=== PATIENT | male | born 1990 | race Caucasian/White ===

== ENCOUNTER 2017-09-27 09:27 | Emergency (ER) | payer OTHER ==
[~2017-09-27] VITALS: Ht 188 cm; Wt 90.9 kg
[~2017-09-27 09:27] MED LIST: DIPH50TA3 PO; PRED20TA PO
[2017-09-27] MEDS ORDERED: ZYRT10CA PO (09:36)
[2017-09-27] MEDS ORDERED: AUGM875T28 PO (10:31)
[2017-09-27 10:57] VITALS: BP 159/91
--- NOTE | 2017-09-27 18:29 | ECGEPIP ---
Stationary ECG Study [facility] - ED Test Date: 2017-09-27 Pat Name: MARSHALL PEREZ Department: Room: - Gender: M [employer]: corrine : 1990 Requested By: SHYANNE Murcia PA-C Order Number: [id number] Reading MD: Kalia Rainey Measurements Intervals [place] Rate: 89 P: 53 FL: 136 QRS: 19 QRSD: 90 T: 29 QT: 292 QTc: 355 Interpretive Statements SINUS RHYTHM NONSPECIFIC T-WAVE ABNORMALITY NO PRIORS FOR COMPARISON Electronically Signed On 09-27-2017 18:28:48 EST by Kalia Rainey
[2017-09-28] MEDS ORDERED: PRED20TA PO (01:55)
== END 2017-09-27 10:47 | disposition home or self-care (01) ==
LOC: M ED 09:27
DX: J32.9 Chronic sinusitis, unspecified (principal); M94.0 Chondrocostal junction syndrome [Tietze]; F17.200 Nicotine dependence, unspecified, uncomplicated; Z79.899 Other long term (current) drug therapy

== ENCOUNTER 2017-09-27 20:14 | Emergency (ER) | payer OTHER ==
[~2017-09-27] VITALS: Ht 188 cm; Wt 90.9 kg
[~2017-09-27 20:14] MED LIST changes: +AUGM875T28 PO; +ZYRT10CA PO
[2017-09-27] MEDS ORDERED: methylPREDNISolone INJ 125 MG/2 ML VIAL (J2930) IV ONE (20:45)
[2017-09-27] MEDS ORDERED: FAMOTIDINE INJ 20MG/2ML VIAL (S0028) IVP ONE (20:45)
[2017-09-27] MEDS ORDERED: diphenhydrAMINE INJ 50MG/ML VIAL (J1200) IV ONE (20:45)
[2017-09-27 21:05] LABS: BASO % 0.3 % (0.0-1.0); EOS # 0.2 10^3/uL (0.0-0.50); EOS % 1.5 % (0.0-3.0); IMMATURE GRANULOCYTE % 0.3 % (0-0); LYMPH # 1.9 10^3/uL (1.5-6.5); LYMPH % 15.7 % (24.0-44.0); MEAN CORPUSCULAR HEMOGLOBIN 31.3 pg (27.0-33.0); MEAN CORPUSCULAR HGB CONC 34.5 g/dl (32.0-36.5); MEAN CORPUSCULAR VOLUME 90.8 fl (80.0-96.0); MONO # 1.2 10^3/uL (0.0-0.8); MONO % 9.8 % (0.0-5.0); NEUTROPHILS # 8.6 10^3/uL (1.8-7.7); NEUTROPHILS % 72.4 % (36.0-66.0); PLATELET COUNT, AUTOMATED 239 10^3/uL (150-450); RED CELL DISTRIBUTION WIDTH 12.9 % (11.5-14.5); WHITE BLOOD COUNT 11.9 10^3/uL (4.0-10.0)
[2017-09-27 21:32] LABS: ANION GAP 7 MEQ/L (8-16); BLOOD UREA NITROGEN 11 MG/DL (7-18); CALCIUM LEVEL 9.3 MG/DL (8.5-10.1); CARBON DIOXIDE LEVEL 31 MEQ/L (21-32); CHLORIDE LEVEL 102 MEQ/L (98-107); CREATININE FOR GFR 1.18 MG/DL (0.70-1.30); GLOMERULAR FILTRATION RATE > 60.0 (>60); GLUCOSE, FASTING 101 MG/DL (70-105); POTASSIUM SERUM 3.5 MEQ/L (3.5-5.1); SODIUM LEVEL 140 MEQ/L (136-145)
[2017-09-27] MEDS ORDERED: ISOVUE-370 76% 100ML VIAL (Q9967) As Ordered ONE (21:46)
[2017-09-27] MEDS ORDERED: C1 ESTERASE INHIBITOR 500 UNIT ONE (22:00)
--- NOTE | 2017-09-27 22:10 | REPUSA ---
CT of the soft tissues of the neck clinical history: swelling. Technique: Multiple axial CT images were obtained from the base of the skull to the upper thorax afte r administration of nonionic intravenous contrast. Coronal and sagittal reconstructions were also obt ained. Findings: The visualized paranasal sinuses are clear. The pterygopalatine fossa, pterygoid plates and pterygoid muscles are unremarkable. The mucosa of the naso- and oropharynx appears unremarkable. The re is circumferential soft tissue swelling in the lower pharynx, causing mild narrowing of the airway . The visualized osseous structures are intact. The airway is patent. No focal mass is appreciated. T here is no evidence of lymphadenopathy. The thyroid gland appears unremarkable. The superficial soft tissues are unremarkable. The vascular structures demonstrate normal caliber and contour. Impression: Mild peritonitis. No evidence of abscess. The airway is patent.
[2017-09-27] MEDS ORDERED: DILUENT IV ONE (22:45)
[2017-09-27] MEDS ORDERED: C1 ESTERASE INHIBITOR IV ONE (22:45)
[2017-09-28] MEDS ORDERED: PRED20TA PO (01:55)
[2017-09-28 02:38] VITALS: BP 125/83
== END 2017-09-28 02:41 | disposition home or self-care (01) ==
LOC: M ED 20:14
DX: R22.0 Localized swelling, mass and lump, head (principal); T78.3XXA Angioneurotic edema, initial encounter; X58.XXXA Exposure to other specified factors, initial encounter; Y92.89 Other specified places as the place of occurrence of the external cause; Z79.2 Long term (current) use of antibiotics; Z79.899 Other long term (current) drug therapy
CPT/HCPCS: 70491; 80048; 85025; 86140; 86850; 86900; 86901; 87486; 87581; 87633; 87798; 87880; 96374; 96375; 99284; J0597; J1200; J2930; Q9967

== ENCOUNTER 2017-11-10 06:56 | Emergency (ER) | payer OTHER ==
[2017-11-10] MEDS: NS 1,000 ML IV (07:41)
[2017-11-10] MEDS: KETOROLAC 30 MG/ML VIAL (J1885) IV (07:41)
[2017-11-10] MEDS: diphenhydrAMINE 50 MG CAP PO (07:41)
[2017-11-10] MEDS: METOCLOPRAMIDE INJ 10MG/2ML VIAL (J2765) IV (07:41)
[2017-11-10 07:47] LABS: BASO % 0.3 % (0.0-1.0); EOS % 0.4 % (0.0-3.0); HEMOGLOBIN 14.2 g/dl (14.0-18.0); IMMATURE GRANULOCYTE % 0.3 % (0-0); LYMPH # 0.8 10^3/uL (1.5-6.5); LYMPH % 11.1 % (24.0-44.0); MEAN CORPUSCULAR HGB CONC 34.6 g/dl (32.0-36.5); MEAN CORPUSCULAR VOLUME 89.5 fl (80.0-96.0); MONO # 0.8 10^3/uL (0.0-0.8); MONO % 11.5 % (0.0-5.0); NEUTROPHILS # 5.3 10^3/uL (1.8-7.7); NEUTROPHILS % 76.4 % (36.0-66.0); PLATELET COUNT, AUTOMATED 162 10^3/uL (150-450); RED BLOOD COUNT 4.58 10^6/uL (4.30-6.10); RED CELL DISTRIBUTION WIDTH 12.1 % (11.5-14.5); WHITE BLOOD COUNT 6.9 10^3/uL (4.0-10.0)
[2017-11-10 07:49] LABS: APPEARANCE, URINE CLEAR (CLEAR); BACTERIA, URINE AUTO NEGATIVE (NEGATIVE); BILIRUBIN, URINE AUTO NEGATIVE (NEGATIVE); BLOOD, URINE BLOOD NEGATIVE (NEGATIVE); COLOR, URINE YELLOW (YELLOW); GLUCOSE, URINE (UA) AUTO NEGATIVE (NEGATIVE); KETONE, URINE AUTO NEGATIVE (NEGATIVE); LEUKOCYTE ESTERASE, URINE AUTO NEGATIVE (NEGATIVE); MUCUS, URINE SMALL (NEGATIVE); NITRITE, URINE AUTO NEGATIVE (NEGATIVE); PROTEIN, URINE AUTO NEGATIVE (NEGATIVE); RBC, URINE AUTO 2 /HPF (0-3); SPECIFIC GRAVITY URINE AUTO 1.019 (1.002-1.035); SQUAMOUS EPITHELIAL CELL UR AU 0 /HPF (0-6); UROBILINOGEN, URINE AUTO 0.2 mg/dL (0.0-2.0); WBC, URINE AUTO 2 /HPF (0-3)
[2017-11-10 08:08] LABS: ANION GAP 11 MEQ/L (8-16); BLOOD UREA NITROGEN 8 MG/DL (7-18); CALCIUM LEVEL 8.3 MG/DL (8.5-10.1); CARBON DIOXIDE LEVEL 27 MEQ/L (21-32); CHLORIDE LEVEL 103 MEQ/L (98-107); CREATININE FOR GFR 1.33 MG/DL (0.70-1.30); GLOMERULAR FILTRATION RATE > 60.0 (>60); GLUCOSE, FASTING 114 MG/DL (70-105); POTASSIUM SERUM 3.7 MEQ/L (3.5-5.1); SODIUM LEVEL 141 MEQ/L (136-145)
[2017-11-10 09:04] LABS: CONTROL LINE MONO INT CTR LINE PRESENT; MONO SCRN NEGATIVE (NEGATIVE)
== END 2017-11-10 09:40 | disposition home or self-care (01) ==
LOC: M ED 06:56
DX: B34.9 Viral infection, unspecified (principal); E86.0 Dehydration; G44.209 Tension-type headache, unspecified, not intractable; M79.1 Myalgia; R11.0 Nausea; Z79.899 Other long term (current) drug therapy
CPT/HCPCS: J1885

== ENCOUNTER 2018-01-05 21:07 | Emergency (ER) | payer OTHER ==
[2018-01-05] MEDS: LORazepam 2 MG/ML VIAL (J2060) IV (21:52)
[2018-01-05] MEDS: dexameTHASONE 20 MG/5 ML VIAL (J1100) IV (23:13)
[2018-01-05] MEDS: diphenhydrAMINE INJ 50MG/ML VIAL (J1200) IV (23:13)
== END 2018-01-06 01:06 | disposition home or self-care (01) ==
LOC: M ED 01-06 01:06
DX: F43.0 Acute stress reaction (principal); Z79.899 Other long term (current) drug therapy; Z91.048 Other nonmedicinal substance allergy status
CPT/HCPCS: J1200

== ENCOUNTER 2019-01-10 06:20 | Emergency (ER) | payer OTHER ==
[~2019-01-10] VITALS: Ht 188 cm; Wt 101.4 kg
[~2019-01-10 06:20] MED LIST changes: +ALIG4CAP PO; +CALCTAB41 PO; +FLON1SPR; +IBUP200C25 PO; +KETO10TAB PO; +MULTCAP PO; +OMEG1CAP16 PO; +PROAAER10 INH; +RANI1TAB6 PO; +SING10TA32 PO; +TYLE500T78 PO
[2019-01-10] MEDS ORDERED: methylPREDNISolone INJ 125 MG/2 ML VIAL (J2930) IV ONE (06:45)
[2019-01-10] MEDS ORDERED: ALBUTEROL SULFATE 2.5 MG/0.5 ML INH NEB SOLN NEB ONE (06:45)
[2019-01-10] MEDS ORDERED: FAMOTIDINE IV BAG 20 MG in APPROPRIATE DILUENT 1 EA IV ONE (06:45)
[2019-01-10] MEDS ORDERED: diphenhydrAMINE INJ 50MG/ML VIAL (J1200) IV ONE (08:00)
[2019-01-10] MEDS ORDERED: DILUENT IV ONE ×2 (09:15→09:22)
[2019-01-10] MEDS ORDERED: C1 ESTERASE INHIBITOR IV ONE ×2 (09:15→09:22)
[2019-01-10] MEDS ORDERED: PRED20TA PO (10:42)
[2019-01-10 11:09] VITALS: BP 123/69
[2019-01-12] MEDS ORDERED: BENA25CA4 PO (15:53)
[2019-01-12] MEDS ORDERED: PANT20TA2 PO (15:53)
[2019-01-12] MEDS ORDERED: FLUT11IN INH (15:53)
[2019-01-12] MEDS ORDERED: STOO100C PO (15:53)
[2019-01-12] MEDS ORDERED: BUPR1TAB53 PO (15:54)
== END 2019-01-10 11:11 | disposition home or self-care (01) ==
LOC: M ED 06:20
DX: L50.9 Urticaria, unspecified (principal); J30.1 Allergic rhinitis due to pollen; Z79.899 Other long term (current) drug therapy; Z91.018 Allergy to other foods
CPT/HCPCS: 93041; 94640; 94760; 96365; 96375; 99284; J0597; J1200; J2930

== ENCOUNTER 2019-01-11 15:02 | Emergency (ER) | payer OTHER ==
[~2019-01-11] VITALS: Ht 188 cm; Wt 99.3 kg
[2019-01-11] MEDS ORDERED: diphenhydrAMINE INJ 50MG/ML VIAL (J1200) IV ONE (17:15)
[2019-01-11] MEDS ORDERED: methylPREDNISolone INJ 125 MG/2 ML VIAL (J2930) IV ONE (17:15)
[2019-01-11] MEDS ORDERED: NS 1,000 ML IV ONE (17:15)
[2019-01-11] MEDS ORDERED: FAMOTIDINE IV BAG 20 MG in APPROPRIATE DILUENT 1 EA IV ONE (17:15)
[2019-01-11 20:04] VITALS: BP 143/88
[2019-01-12] MEDS ORDERED: FLUT11IN INH (15:53)
[2019-01-12] MEDS ORDERED: BENA25CA4 PO (15:53)
[2019-01-12] MEDS ORDERED: STOO100C PO (15:53)
[2019-01-12] MEDS ORDERED: PANT20TA2 PO (15:53)
[2019-01-12] MEDS ORDERED: BUPR1TAB53 PO (15:54)
== END 2019-01-11 20:06 | disposition home or self-care (01) ==
LOC: M ED 15:02
DX: L23.9 Allergic contact dermatitis, unspecified cause (principal); Z91.018 Allergy to other foods; E88.09 Other disorders of plasma-protein metabolism, not elsewhere classified; Z79.52 Long term (current) use of systemic steroids; Z79.51 Long term (current) use of inhaled steroids; Z79.899 Other long term (current) drug therapy
CPT/HCPCS: 93041; 94760; 96365; 96375; 99284; J1200; J2930

== ENCOUNTER 2019-01-13 08:33 | Emergency (ER) | payer OTHER ==
[~2019-01-13] VITALS: Ht 188 cm; Wt 99.6 kg
[~2019-01-13 08:33] MED LIST changes: +BENA25CA4 PO; +BUPR1TAB53 PO; +FLUT11IN INH; +PANT20TA2 PO; +STOO100C PO
[2019-01-13] MEDS ORDERED: FAMOTIDINE IV BAG 20 MG in APPROPRIATE DILUENT 1 EA IV ONE (09:00)
[2019-01-13] MEDS ORDERED: diphenhydrAMINE INJ 50MG/ML VIAL (J1200) IV ONE (09:00)
[2019-01-13] MEDS ORDERED: methylPREDNISolone INJ 125 MG/2 ML VIAL (J2930) IV ONE (09:00)
[2019-01-13] MEDS ORDERED: PEPC1TAB5 PO (10:06)
[2019-01-13 10:28] VITALS: BP 134/92
== END 2019-01-13 10:40 | disposition home or self-care (01) ==
LOC: M ED 08:33
DX: L50.1 Idiopathic urticaria (principal); J45.909 Unspecified asthma, uncomplicated; F33.9 Major depressive disorder, recurrent, unspecified; F41.9 Anxiety disorder, unspecified; K21.9 Gastro-esophageal reflux disease without esophagitis; Z79.899 Other long term (current) drug therapy; Z91.018 Allergy to other foods; F17.210 Nicotine dependence, cigarettes, uncomplicated
CPT/HCPCS: 96374; 96375; 99284; J1200; J2930

== ENCOUNTER 2019-01-26 13:05 | Day surgery (SDC) | payer OTHER ==
[~2019-01-26] VITALS: Ht 188 cm; Wt 100.7 kg
[~2019-01-26 13:05] MED LIST changes: +PEPC1TAB5 PO
[2019-01-26] MEDS ORDERED: HYDR12.55 PO (15:08)
[2019-01-26] MEDS ORDERED: RANI1SYP PO (15:08)
[2019-01-26] MEDS ORDERED: PROPOFOL 200 MG/20 ML VIAL As Ordered ONE ×2 (15:18→15:23)
[2019-01-26] MEDS ORDERED: LIDOCAINE 2% INJ 100 MG/5 ML SDV (FOR ANES.) As Ordered ONE (15:19)
--- NOTE | 2019-01-26 15:38 | ROOR ---
Patient Name: Franklin Gaytan Procedure Date: 01/26/2019 3:16 PM Date of : 1990 Age: 28 Room: [facility] Gender: Male Note Status: Finalized Procedure: Upper GI endoscopy Indications: Follow-up of reflux esophagitis Providers: Sbeas Prieto MD Referring MD: ADAMS PATEL MD Requesting Provider: Medicines: Monitored Anesthesia Care Complications: No immediate complications. Procedure: Pre-Anesthesia Assessment: - Prior to the procedure, a History and Physical was performed, and patient medications and allergies were reviewed. The patient is competent. The risks and benefits of the procedure and the sedation options and risks were discussed with the patient. All questions were answered and informed consent was obtained. Patient identification and proposed procedure were verified by the physician, the nurse and the anesthesiologist in the procedure room. Mental Status Examination: alert and oriented. Airway Examination: normal oropharyngeal airway and neck mobility. Respiratory Examination: clear to auscultation. CV Examination: normal. Prophylactic Antibiotics: The patient does not require prophylactic antibiotics. Prior Anticoagulants: The patient has taken no previous anticoagulant or antiplatelet agents. ASA Grade Assessment: II - A patient with mild systemic disease. After reviewing the risks and benefits, the patient was deemed in satisfactory condition to undergo the procedure. The anesthesia plan was to use monitored anesthesia care (MAC). Immediately prior to administration of medications, the patient was re-assessed for adequacy to receive sedatives. The heart rate, respiratory rate, oxygen saturations, blood pressure, adequacy of pulmonary ventilation, and response to care were monitored throughout the procedure. The physical status of the patient was re-assessed after the procedure. The Endoscope was introduced through the mouth, and advanced to the second part of duodenum. The upper GI endoscopy was accomplished without difficulty. The patient tolerated the procedure well. Findings: LA Grade B (one or more mucosal breaks greater than 5 mm, not extending between the tops of two mucosal folds) esophagitis with no bleeding was found in the distal esophagus. Biopsies were taken with a cold forceps for histology. Verification of patient identification for the specimen was done by the physician and nurse using the patient's name, date and medical record number. Estimated blood loss was minimal. No gross lesions were noted in the entire examined stomach. The duodenal bulb and second portion of the duodenum were normal. Impression: - LA Grade B reflux esophagitis. Biopsied. - No gross lesions in the stomach. - Normal duodenal bulb and second portion of the duodenum. Recommendation: - Patient has a contact number available for emergencies. The signs and symptoms of potential delayed complications were discussed with the patient. Return to normal activities tomorrow. Written discharge instructions were provided to the patient. - Resume previous diet. - Continue present medications. - Follow an antireflux regimen. - Use Protonix (pantoprazole) 40 mg PO twice daily - to be taken in morning (1/2 hour before breakfast) and at bedtime ( atleast 3 hours after last meal) for 3 months. - Repeat upper endoscopy in 3 years depending on the symptoms and clinical response. - Return to primary care physician. - Based on the biopsy results you will receive a phone call from GI clinic in 2-3 weeks to review the pathology results AND/OR your results will be faxed to your Primary care physician. Sebas Prieto MD Sebas Prieto MD 01/26/2019 3:38:16 PM Electronically signed by Sebas Prieto MD Number of Addenda: 0 Note Initiated On: 01/26/2019 3:16 PM Estimated Blood Loss: Estimated blood loss was minimal.
[2019-01-26 16:03] VITALS: BP 138/88
== END 2019-01-26 16:10 | disposition home or self-care (01) ==
LOC: M OPP 13:05
PROVIDERS: ATTEND Internal Medicine Gastroenterology
DX: K21.0 Gastro-esophageal reflux disease with esophagitis (principal)

== ENCOUNTER 2019-02-01 23:12 | Emergency (ER) | payer OTHER ==
[~2019-02-01] VITALS: Ht 188 cm; Wt 100.0 kg
[~2019-02-01 23:12] MED LIST changes: +HYDR12.55 PO; +RANI1SYP PO
[2019-02-01] MEDS ORDERED: PRED10TA2 PO (23:41)
[2019-02-01] MEDS ORDERED: predniSONE 20 MG TAB PO ONE (23:45)
[2019-02-02 00:32] VITALS: BP 142/88
== END 2019-02-02 00:33 | disposition home or self-care (01) ==
LOC: M ED 23:12
DX: L50.1 Idiopathic urticaria (principal); Z91.048 Other nonmedicinal substance allergy status; Z91.018 Allergy to other foods

== ENCOUNTER 2019-02-03 03:45 | Emergency (ER) | payer OTHER ==
[~2019-02-03] VITALS: Ht 188 cm; Wt 101.4 kg
[~2019-02-03 03:45] MED LIST changes: +PRED10TA2 PO
[2019-02-03] MEDS ORDERED: diphenhydrAMINE INJ 50MG/ML VIAL (J1200) IV ONE (06:00)
[2019-02-03] MEDS ORDERED: FAMOTIDINE INJ 20MG/2ML VIAL (S0028) IVP ONE (06:00)
[2019-02-03] MEDS ORDERED: FAMOTIDINE/NS 20 MG/50 ML BAG (S0028) IV ONE (06:00)
[2019-02-03] MEDS ORDERED: methylPREDNISolone INJ 125 MG/2 ML VIAL (J2930) IV ONE (06:00)
[2019-02-03 07:42] VITALS: BP 146/79
== END 2019-02-03 07:43 | disposition home or self-care (01) ==
LOC: M ED 03:45
DX: L50.1 Idiopathic urticaria (principal); Z72.0 Tobacco use; Z79.899 Other long term (current) drug therapy; Z91.018 Allergy to other foods; J30.2 Other seasonal allergic rhinitis
CPT/HCPCS: 93041; 94760; 96374; 96375; 99284; J1200; J2930